=== PATIENT | female | born 1945 | race Two or more races ===

== ENCOUNTER 2018-01-12 21:02 | Emergency (ER) | payer OTHER ==
[~2018-01-12] VITALS: Ht 157.5 cm; Wt 72.6 kg
[2018-01-12] MEDS ORDERED: SYNTHROID137 MCG (21:37)
[2018-01-12] MEDS ORDERED: COREG CR10 MG (21:37)
[2018-01-12] MEDS ORDERED: VASOTEC10 MG (21:37)
[2018-01-12] MEDS ORDERED: ASPIR 8181 MG (21:38)
[2018-01-12] MEDS ORDERED: MAGNESIUM400 MG (21:38)
[2018-01-13] MEDS ORDERED: MECLIZINE HCL25 MG PO (05:44)
== END 2018-01-13 05:45 ==
LOC: ER 21:02
DX: H81.43 Vertigo of central origin, bilateral (principal)